=== PATIENT | male | born 1970 | race Two or more races ===

== ENCOUNTER 2020-08-17 11:36 | Outpatient (CLI) | payer OTHER | END 2020-08-17 16:01 | disposition home or self-care (01) | LOC: OFIC 805 11:36 | PROVIDERS: ATTEND Otolaryngology | DX: R42 Dizziness and giddiness (principal); H93.13 Tinnitus, bilateral ==

== ENCOUNTER → 2020-09-15 | Outpatient (CLI) | payer OTHER | END | disposition home or self-care (01) | LOC: OFIC 805 11:45 | PROVIDERS: ATTEND Otolaryngology | DX: H93.A3 Pulsatile tinnitus, bilateral (principal); R42 Dizziness and giddiness ==

== ENCOUNTER 2020-09-21 11:13 | Outpatient (CLI) | payer OTHER | END 2020-09-21 14:22 | disposition home or self-care (01) | LOC: OFIC 805 11:13 | PROVIDERS: ATTEND Otolaryngology | DX: R42 Dizziness and giddiness (principal); H93.13 Tinnitus, bilateral ==